=== PATIENT | male | born 1995 | race Caucasian/White ===

== ENCOUNTER 2017-12-03 23:38 | Emergency (ER) | payer OTHER, SELFPAY | END 2017-12-04 00:54 | disposition home or self-care (01) | LOC: ERS 23:38 | DX: K42.9 Umbilical hernia without obstruction or gangrene (principal); L03.316 Cellulitis of umbilicus; Z71.6 Tobacco abuse counseling; F17.210 Nicotine dependence, cigarettes, uncomplicated | CPT/HCPCS: 99406 ==